=== PATIENT | male | born 1940 | race Caucasian/White ===

== ENCOUNTER 2017-05-08 01:53 | Observation (INO) | payer MEDICARE, OTHER ==
[~2017-05-08] VITALS: Ht 170.2 cm; Wt 75.7 kg
[2017-05-08] VITALS (11 sets, daily range): BP systolic 123–159; BP diastolic 77–89; PULSE 50–60; RESP 17–20; Ht 170.2 cm; Wt 75.7 kg
[2017-05-08] MEDS ORDERED: ONDANSETRON 4 MG INJ IV STA (02:34)
[2017-05-08] MEDS ORDERED: SOD CHLORIDE 0.9% 1,000 ML IV STA (02:34)
[2017-05-08 02:45] LABS: BASOPHILS % 0.8 % (0.0-2.0); EOSINOPHILS # 0.1 10^3/ul (0.0-0.5); EOSINOPHILS % 2.8 % (0.0-7.0); HEMATOCRIT 37.1 % (42.0-52.0); HEMOGLOBIN 13.2 g/dl (14.0-18.0); LYMPHOCYTES # 1.6 10^3/ul (0.8-2.9); LYMPHOCYTES % 32.6 % (15.0-51.0); MEAN CORPUSCULAR HEMOGLOBIN 31.8 pg (29.0-33.0); MEAN CORPUSCULAR HGB CONC 35.6 g/dl (32.0-37.0); MEAN CORPUSCULAR VOLUME 89.4 fl (82.0-101.0); MEAN PLATELET VOLUME 8.6 fl (7.4-10.4); MONOCYTE # 0.5 10^3/ul (0.3-0.9); MONOCYTES % 10.7 % (0.0-11.0); NEUTROPHIL # 2.6 10^3/ul (1.6-7.5); NEUTROPHILS % 52.7 % (39.0-77.0); PLATELET COUNT 240 10^3/UL (140-415); RED BLOOD COUNT 4.15 10^6/ul (4.70-6.10); RED CELL DISTRIBUTION WIDTH 12.1 % (11.5-14.5); WHITE BLOOD COUNT 4.9 10^3/ul (4.8-10.8)
--- NOTE | 2017-05-08 02:57 | RADRPT ---
PROCEDURE: XR Chest. CLINICAL INDICATION: Pain. TECHNIQUE: Single frontal chest x-ray. COMPARISON: None. FINDINGS: Heart is enlarged.. There is no congestive heart failure.. There is hypoventilation with mild bibas ilar atelectasis.. There is no pleural effusion. There is no pneumothorax. The osseous structures are unremarkable. IMPRESSION: Cardiomegaly. Hypoventilation with mild bibasilar atelectasis. RPTAT: HMVK .Yinka Gonzalez MD, Date Time Electronically viewed and signed by .Yinka Gonzalez MD, on 05/08/2017 02:56 .K/
[2017-05-08 03:02] LABS: ALANINE AMINOTRANSFERASE 42 IU/L (13-69); ALBUMIN 4.8 g/dl (3.3-4.9); ALBUMIN/GLOBULIN RATIO 1.37; ALKALINE PHOSPHATASE 90 IU/L (42-121); ANION GAP 20 (8-16); ASPARTATE AMINO TRANSFERASE 37 IU/L (15-46); BILIRUBIN,INDIRECT 0.7 mg/dl (0-1.1); BILIRUBIN,TOTAL 0.7 mg/dl (0.2-1.3); BLOOD UREA NITROGEN 12 mg/dl (7-20); CALCIUM 9.5 mg/dl (8.4-10.2); CARBON DIOXIDE 26 mmol/L (21-31); CHLORIDE 92 mmol/L (97-110); CREATININE 0.82 mg/dl (0.61-1.24); GLUCOSE 121 mg/dl (70-220); POTASSIUM 3.9 mmol/L (3.5-5.1); SODIUM 134 mmol/L (135-144); TOTAL PROTEIN 8.3 g/dl (6.1-8.1)
[2017-05-08 03:15] LABS: TROPONIN-I < 0.012 ng/ml (0.00-0.12)
--- NOTE | 2017-05-08 03:32 | RADRPT ---
PROCEDURE: CT Brain without contrast. CLINICAL INDICATION: Syncope TECHNIQUE: Axial images from the skull base through the vertex without IV contrast. Multiplanar r eformatted images were made. Images were reviewed on a PACS workstation. The CTDIvol is 43.86 mGy and the DLP is 810.25 mGycm. One or more of the following dose reduction techniques were used: auto mated exposure control, adjustment of the mA and/or kV according to patient size, or use of iterativ e reconstruction technique. COMPARISON: None. FINDINGS: The ventricles and cisterns are normal for age. Minimal volume loss for age. 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 There is no evidence for territoria l infarction or intracranial hemorrhage. No mass or midline shift is seen. No extra-axial fluid co llection is seen. prominent mucoperiosteal thickening and slight fluid is seen in the left maxilla ry sinus. Minimal fluid or mucoperiosteal thickening of the right ethmoids. Prior bilateral catarac t surgery. Small probable contusion of the left forehead. IMPRESSION: Small probable contusion of the left forehead. No definite acute intracranial abnormality. RPTAT: HLBE Physician Jennifer Date Time Electronically viewed and signed by Physician Jennifer on 05/08/2017 03:32 YONY/
[2017-05-08] MEDS ORDERED: AMOX1TAB10 PO (03:42)
[2017-05-08] MEDS ORDERED: AMO500 PO (03:42)
[2017-05-08] MEDS ORDERED: CLOP75TA4 PO (03:42)
[2017-05-08] MEDS ORDERED: CARV25TA79 PO (03:42)
[2017-05-08] MEDS ORDERED: PANT40TA4 PO (03:42)
--- NOTE | 2017-05-08 03:46 | ERA ---
ER Documentation Chief Complaint Date/Time DATE: 05/08/17 TIME: 03:44 Chief Complaint BIBA FROM HOME SYNCOPAL EPISODE WHILE TRYING TO HAVE A BM HPI 77-year-old man brought in by EMS from home for syncopal episode while having a bowel movement tonight. He had no seizure activity but did strike the left brow when he fell forward. He is been using amoxicillin 8 days for recent diagnosis of sinusitis. He denied chest pain or palpitations, no recent fevers or chills, no shortness of breath, no vomiting or diarrhea. He has had no blood per rectum or melena. ROS All systems reviewed and are negative except as per history of present illness. Medications Home Meds Reported Medications Carvedilol* (Carvedilol*) 25 Mg Tablet, 25 MG PO DAILY, #60 TAB 05/08/17 Clopidogrel Bisulfate* (Clopidogrel Bisulfate*) 75 Mg Tablet, 75 MG PO DAILY, # 30 TAB 05/08/17 Amoxicillin* (Amoxicillin*) 500 Mg Cap, 500 MG PO Q8, #30 CAP 05/08/17 Amoxicillin/Potassium Clav (Amox-Clav 875-125 mg Tablet) 875-125 mg Tab, 1 TAB PO TID, #20 TAB 05/08/17 Pantoprazole* (Pantoprazole*) 40 Mg Tablet.dr, 40 MG PO DAILY, TAB 05/08/17 Allergies Allergies: Coded Allergies: No Known Allergy (Unverified , 05/08/17) PMhx/Soc Hypertension, gastritis, recent sinusitis History of Surgery: Yes (prostate sx) Anesthesia Reaction: No Hx Neurological Disorder: No Hx Respiratory Disorders: No Hx Cardiac Disorders: Yes (htn) Hx Psychiatric Problems: No Hx Miscellaneous Medical Probl: Yes (gastritis) Hx Alcohol Use: No Hx Substance Use: No Hx Tobacco Use: No Smoking Status: Never smoker FmHx Family History: No diabetes Physical Exam Vitals Vital Signs Date Time Temp Pulse Resp B/P Pulse Ox O2 Delivery O2 Flow Rate FiO2 05/08/17 02:21 48 17 147/83 100 Room Air 05/08/17 02:05 97.7 43 20 162/88 98 Physical Exam GENERAL: Well-developed, well-nourished, appears dehydrated, afebrile HEENT: Dry mucous membranes, pink conjunctiva, no cervical spine tenderness or step-off deformities, positive abrasion to the left brow, no submandibular induration, and no pharyngeal erythema NEURO: Alert and oriented 3, cranial nerves II through XII intact bilaterally, pupils equal round reactive to light, no focal deficits or facial asymmetry, sensation intact distally Strength 5/5 in upper and lower extremities bilaterally CARDIAC: Regular rate and rhythm, no murmurs rubs or gallops LUNGS: Clear bilaterally no wheezing crackles or stridor ABDOMEN: Soft nontender, no guarding, no rigidity, no rebound, no psoas sign no obturator sign. Normoactive bowel sounds SKIN: Warm and dry to touch, positive skin abrasion and contusion to the left brow no target lesions, and without ulcers EXTREMITIES: No clubbing cyanosis or edema, calves are bilaterally symmetrical, no Homans sign, no popliteal cord sign. Distal pulses equal and bilateral PSYCH: Normal affect without agitation or irritability Result Diagram: 05/08/1721405/08/17214 Results 24 hrs Laboratory Tests Test 05/08/17 02:15 White Blood Count 4.910^3/ul Red Blood Count 4.1510^6/ul Hemoglobin 13.2g/dl Hematocrit 37.1% Mean Corpuscular Volume 89.4fl Mean Corpuscular Hemoglobin 31.8pg Mean Corpuscular Hemoglobin Concent 35.6g/dl Red Cell Distribution Width 12.1% Platelet Count 19240^3/UL Mean Platelet Volume 8.6fl Neutrophils % 52.7% Lymphocytes % 32.6% Monocytes % 10.7% Eosinophils % 2.8% Basophils % 0.8% Nucleated Red Blood Cells % 0.0/100WBC Neutrophils # 2.610^3/ul Lymphocytes # 1.610^3/ul Monocytes # 0.510^3/ul Eosinophils # 0.110^3/ul Basophils # 0.010^3/ul Nucleated Red Blood Cells # 0.010^3/ul Sodium Level 134mmol/L Potassium Level 3.9mmol/L Chloride Level 92mmol/L Carbon Dioxide Level 26mmol/L Anion Gap 20 Blood Urea Nitrogen 12mg/dl Creatinine 0.82mg/dl Glucose Level 121mg/dl Calcium Level 9.5mg/dl Total Bilirubin 0.7mg/dl Direct Bilirubin 0.00mg/dl Indirect Bilirubin 0.7mg/dl Aspartate Amino Transf (AST/SGOT) 37IU/L Alanine Aminotransferase (ALT/SGPT) 42IU/L Alkaline Phosphatase 90IU/L Troponin I < 0.012ng/ml Total Protein 8.3g/dl Albumin 4.8g/dl Globulin 3.50g/dl Albumin/Globulin Ratio 1.37 Lipase 152U/L Current Medications Medications (Trade) Dose Ordered Sig/Edith Route PRN Reason Start Time Stop Time Status Last Admin Dose Admin Sodium Chloride (NS) 1,000 ml @ 1,000 mls/hr Q1H STAT IV 05/08/17 02:34 05/08/17 03:33 DC 05/08/17 02:48 Ondansetron HCl (Zofran Inj) 4 mg ONCE STAT IV 05/08/17 02:34 05/08/17 02:36 DC 05/08/17 02:48 Diphtheria/ Tetanus/Acell Pertussis (Adacel) 0.5 ml ONCE ONCE IM* 05/08/17 04:00 05/08/17 04:01 Procedures/MDM IV line was established patient was placed on patient monitor rhythm strip revealed a sinus bradycardia at about 50 bpm. Patient was afebrile. Left brow was copiously irrigated and triple antibiotic ointment was applied, no sutures required. EKG performed, read by me revealed a sinus bradycardia 50 bpm, left axis deviation, narrow QRS complex, no concerning ST elevations or depressions noted. One view chest x-ray performed, read by me there are atelectatic changes bilaterally, no acute infiltrates, no pneumothorax. CT scan of the brain was performed that was negative for acute bleed mass or shift. I administered 1 L normal saline intravenously for dehydration and Zofran 4 mg IV for dizziness, patient also received tetanus toxoid 0.5 mL intramuscular injection. CBC was unremarkable, electrolytes normal, liver function tests normal, troponin was negative. Urine analysis is also been ordered results are pending I will follow-up. Patient is currently using antibiotics 8 days for sinusitis, beta-lactam antibiotics can cause cardiac dysrhythmias although unlikely in this scenario patient will be admitted to telemetry setting for continued medical management and possible cardiology consultation. Departure Diagnosis: Primary Impression: Syncope Qualified Code: R55 - Syncope, unspecified syncope type Additional Impressions: Symptomatic bradycardia Dehydration Abrasion of brow Qualified Code: S00.81XA - Abrasion of brow, initial encounter Condition: YANDY Moreno MD May 08, 2017 03:46
[2017-05-08] MEDS ORDERED: DIPHTH/TET/ACEL PERTUSS (ADULT) 0.5 ML VIAL IM* ONE (04:00)
[2017-05-08] MEDS ORDERED: DOCUSATE SODIUM 100 MG CAP PO PRN (04:30)
[2017-05-08] MEDS ORDERED: ONDANSETRON 4 MG INJ IV PRN (04:30)
[2017-05-08] MEDS ORDERED: BISACODYL (EC) 5 MG TAB PO PRN (04:30)
[2017-05-08] MEDS ORDERED: NACL 0.9% 3 ML SYG IV SCH (04:30)
[2017-05-08] MEDS: PANTOPRAZOLE 40 MG INJ IV SCH (06:24)
--- NOTE | 2017-05-08 06:27 | HP ---
Date/Time of Note Date/Time of Note DATE: 05/08/17 TIME: 06:10 Assessment/Plan VTE Prophylaxis VTE Prophylaxis Intervention: SCD's Assessment/Plan Chief Complaint/Hosp Course This is a 77 year male being admitted to the telemetry floor for: #1 syncopal episode: Neurocardiogenic versus cardiac versus situational syncope. Patient appear to have syncope after however and having a bowel movement. He is also noted to be sinus bradycardic as well. At the current time will check carotid Dopplers, 2D echocardiogram. Brain CT did not show any acute abnormalities. Will check orthostatic vital signs. Will hold beta- estrella at this time. Consult cardiology, consider neurology if indicated. #2 hypertension: Patient apparently is on carvedilol only for his blood pressure he denies any other previous cardiac history. Will hold the beta- estrella for now and likely if there is no other indication we will discontinue the carvedilol and start him an alternative medication that does not have beta- blockade/AV marian effects. #3 antiplatelet medication: Patient states that he is on Plavix for his blood pressure. He denies any previous history of any heart attack or stroke/TIA or any coronary artery disease. At this time I do not feel like this patient needs Plavix. Will hold for now and defer to cardiology. #4 DVT and GI prophylaxis: SCDs, Protonix Further treatment strategy will be implemented as per the clinical course Problems: HPI/ROS Admit Date/Time Admit Date/Time May 08, 2017 at 03:57 Hx of Present Illness cc: fall at home with loc. 77-year-old man brought in by EMS from home for syncopal episode while having a bowel movement tonight. He states he was sitting on the toilet and felt warm after his bowel movement and thinks he fell over. He did have LOC for approx 1 minute as per his . He had no seizure activity but did strike the left brow when he fell forward. He is been using amoxicillin 8 days for recent diagnosis of sinusitis. He denied chest pain or palpitations, no recent fevers or chills, no shortness of breath, no vomiting or diarrhea. He has had no blood per rectum or melena. allergies: nkda meds: see LILIAM RECIO Const: As per HPI Eyes : No pain discharge or redness or change in visual acuity ENT: No pain, sore throat, congestion, congestion, dysphagia or discharge Respiratory: No shortness of breath, cough, sputum, wheezing, or pleuritic pain Cardiovascular: No chest pain, palpitation, PND, or edema GI : no change in appetite, abdominal pain, nausea, vomiting, diarrhea, constipation, or change in the color his stool Genitourinary: No dysuria, hematuria, flank pain , discharge or CVA tenderness Musculoskeletal: No joint pain, back pain, neck pain, restricted range of motion in neck or joints Skin: As per HPI Neuro: As per HPI Endocrine: No polyuria, polydipsia, temperature intolerance Psych: No hallucination, depression, anxiety or suicidal ideation PMH/Family/Social Past Medical History Hypertension, prostate cancer Past Surgical History Partial prostate surgery Family History Significant Family History: no pertinent family hx Social History Alcohol Use: sober (Previous alcohol drinker) Smoking Status: Never smoker Drug Use: none Exam/Review of Systems Vital Signs Vitals Vital Signs Date Time Temp Pulse Resp B/P Pulse Ox O2 Delivery O2 Flow Rate FiO2 05/08/17 05:12 53 05/08/17 04:17 16 159/99 100 Room Air 05/08/17 02:05 97.7 Exam Exam General: Patient is well-developed well-nourished The patient is alert oriented -3 lying comfortably in bed. HEENT: Left forehead abrasion currently covered in dressing, tenderness to palpation at the area of the abrasion, no facial sinus pain to palpation Neck: Supple with full range of motion. No rigidity or meningismus Chest: Nontender Lungs: Clear to auscultation bilaterally no crackles rales or wheezing Heart: Sinus bradycardia no overt murmurs appreciated Abdomen: Soft , nontender, nondistended , bowel sounds are present. No guarding no rebound tenderness , No masses or organomegaly. No costovertebral temporal angle mass Extremities: Normal to inspection, no edema no cyanosis Neurologic: Normal mental status, speech normal, cranial nerves II through XII are intact, motor and sensory are intact, no focal weakness Additional Comments ROCEDURE: CT Brain without contrast. CLINICAL INDICATION: Syncope TECHNIQUE: Axial images from the skull base through the vertex without IV contrast. Multiplanar reformatted images were made. Images were reviewed on a PACS workstation. The CTDIvol is 43.86 mGy and the DLP is 810.25 mGycm. One or more of the following dose reduction techniques were used: automated exposure control, adjustment of the mA and/or kV according to patient size, or use of iterative reconstruction technique. COMPARISON: None. FINDINGS: The ventricles and cisterns are normal for age. Minimal volume loss for age. Tiny probable old lacunar infarct of the anterior limb of the right internal capsule. There is no evidence for territorial infarction or intracranial hemorrhage. No mass or midline shift is seen. No extra-axial fluid collection is seen. prominent mucoperiosteal thickening and slight fluid is seen in the left maxillary sinus. Minimal fluid or mucoperiosteal thickening of the right ethmoids. Prior bilateral cataract surgery. Small probable contusion of the left forehead. IMPRESSION: Small probable contusion of the left forehead. No definite acute intracranial abnormality. RPTAT: [facility] Physician Jennifer Date Time Electronically viewed and signed by Physician Jennifer on 05/08/2017 03 :32 PROCEDURE: XR Chest. CLINICAL INDICATION: Pain. TECHNIQUE: Single frontal chest x-ray. COMPARISON: None. FINDINGS: Heart is enlarged.. There is no congestive heart failure.. There is hypoventilation with mild bibasilar atelectasis.. There is no pleural effusion. There is no pneumothorax. The osseous structures are unremarkable. IMPRESSION: Cardiomegaly. Hypoventilation with mild bibasilar atelectasis. RPTAT: HMVK .Yinka Gonzalez MD, MD Date Time Electronically viewed and signed by .Yinka Goznalez MD, on 05/08/2017 02:56 EKG sinus bradycardia 50 bpm, left axis deviation, narrow QRS complex, no concerning ST elevations or depressions noted. As per ED physician augmentation Labs Result Diagram: 05/08/1721405/08/17 021 Medications Medications Current Medications Clopidogrel Bisulfate (plaVIX) 75 mg DAILY PO ; Start 05/08/17 at 09:00 Ondansetron HCl (Zofran Inj) 4 mg Q6H PRN IV NAUSEA AND/OR VOMITING; Start at 04:30 Docusate Sodium (Colace) 100 mg Q12H PRN PO CONSTIPATION; Start 05/08/17 at 04: 30 Bisacodyl (Dulcolax) 5 mg DAILY PRN PO CONSTIPATION; Start 05/08/17 at 04:30 Pantoprazole (Protonix Iv) 40 mg DAILY@06 IV ; Start 05/08/17 at 06:00 SHIMA CRANE May 08, 2017 06:25
[2017-05-08 06:39] LABS: BASOPHILS % 0.6 % (0.0-2.0); EOSINOPHILS % 0.4 % (0.0-7.0); HEMATOCRIT 37.9 % (42.0-52.0); HEMOGLOBIN 13.5 g/dl (14.0-18.0); LYMPHOCYTES # 1.3 10^3/ul (0.8-2.9); LYMPHOCYTES % 18.3 % (15.0-51.0); MEAN CORPUSCULAR HEMOGLOBIN 31.8 pg (29.0-33.0); MEAN CORPUSCULAR HGB CONC 35.6 g/dl (32.0-37.0); MEAN CORPUSCULAR VOLUME 89.2 fl (82.0-101.0); MEAN PLATELET VOLUME 8.8 fl (7.4-10.4); MONOCYTE # 0.3 10^3/ul (0.3-0.9); MONOCYTES % 4.3 % (0.0-11.0); NEUTROPHIL # 5.4 10^3/ul (1.6-7.5); NEUTROPHILS % 75.7 % (39.0-77.0); PLATELET COUNT 249 10^3/UL (140-415); RED BLOOD COUNT 4.25 10^6/ul (4.70-6.10); WHITE BLOOD COUNT 7.2 10^3/ul (4.8-10.8)
[2017-05-08 06:53] LABS: CREATINE KINASE 57 IU/L (23-200)
[2017-05-08 07:07] LABS: CK-MB 0.69 ng/ml (0.0-2.4); TROPONIN-I < 0.012 ng/ml (0.00-0.12)
[2017-05-08 07:23] LABS: ALBUMIN 4.5 g/dl (3.3-4.9); ALBUMIN/GLOBULIN RATIO 1.36; BILIRUBIN,INDIRECT 0.7 mg/dl (0-1.1); BILIRUBIN,TOTAL 0.7 mg/dl (0.2-1.3); CALCIUM 9.5 mg/dl (8.4-10.2); CREATININE 0.64 mg/dl (0.61-1.24); MAGNESIUM 1.7 mg/dl (1.7-2.5); POTASSIUM 3.8 mmol/L (3.5-5.1); TOTAL PROTEIN 7.8 g/dl (6.1-8.1)
[2017-05-08 07:55] LABS: THYROID STIMULATING HORMONE 0.718 MIU/L (0.465-4.680)
[2017-05-08] MEDS: CLOPIDOGREL 75 MG TAB PO SCH (08:42)
[2017-05-08] MEDS ORDERED: PANTOPRAZOLE (EC) 40 MG TAB PO SCH (09:00)
--- NOTE | 2017-05-08 10:02 | RADRPT ---
PROCEDURE: US Carotids. CLINICAL INDICATION: bruit , syncope TECHNIQUE: Multiple sonographic of the carotid bifurcation region and vertebral arteries were obta ined utilizing melton scale, duplex and color-flow imaging. The images were reviewed on a PACS worksta tion. COMPARISON: No prior studies are available for comparison. FINDINGS: Evaluation of the right carotid bifurcation region reveals mild calcific atherosclerotic disease. Evaluation of the left carotid bifurcation region reveals mild calcific atherosclerotic disease. There is antegrade flow within the vertebral arteries bilaterally. RIGHT CAROTID MEASUREMENTS: Common Carotid Bmjgtr21.2 (cm/sec) Internal Carotid Artery - whudaxlk55.3 (cm/sec) Internal Carotid Artery - mid60.8 (cm/sec) Internal Carotid Artery - vjqkoh68.5 (cm/sec) Internal Carotid/Common Carotid1.38 LEFT CAROTID MEASUREMENTS: Common Carotid Alhwdw48.7 (cm/sec) Internal Carotid Artery - wqwqdrxi55.3 (cm/sec) Internal Carotid Artery - mid55.1 (cm/sec) Internal Carotid Artery - rycnyq35 (cm/sec) Internal Carotid/Common Carotid1.1 RPTAT: AA IMPRESSION: No evidence for hemodynamically significant stenosis in the bilateral internal carotid arteries - va lidated velocity measurements with angiographic measurements, velocity criteria are extrapolated fro m diameter data as defined by the Society of Radiologists in Ultrasound Consensus Conference Radiolo gy 2003; 229;340-346. This study does indirectly reference the measurement of the distal ICA diamet er as the denominator for stenosis measurement. Normal antegrade flow in the vertebral arteries bilaterally. .Tian Posey MD, MD Date Time Electronically viewed and signed by .Tian Posey MD, on 05/08/2017 10:02 .S/
[2017-05-08] MEDS ORDERED: VALS1TAB80 PO (10:39)
[2017-05-08] MEDS ORDERED: morphine 2 MG INJ IV PRN (11:30)
[2017-05-08 11:46] LABS: CREATINE KINASE 65 IU/L (23-200)
[2017-05-08 12:01] LABS: CK-MB 0.63 ng/ml (0.0-2.4); TROPONIN-I < 0.012 ng/ml (0.00-0.12)
--- NOTE | 2017-05-08 19:03 | CONS ---
Date/Time of Note Date/Time of Note DATE: 05/08/17 TIME: 18:58 Assessment/Plan Assessment/Plan Additional Assessment/Plan Syncope Hypertension Trauma -Patient with syncopal episode when having severe abdominal pain while on the toilet. Otherwise denies any palpitations, dizziness in the past for syncope in the past. Episode likely secondary to vasovagal. Carotid ultrasound unremarkable, unfortunately there is no ECG in the chart review, I will order one. Echocardiogram to be reviewed. Continue telemetry monitoring. Consultation Date/Type/Reason Admit Date/Time May 08, 2017 at 03:57 Type of Consultation: cv Reason for Consultation Syncope Hx of Present Illness This is a 77-year-old male with past medical history of hypertension who presents with syncopal episode. Patient states she was having severe abdominal cramping yesterday and he went to the bathroom. As he was sitting on the toilet , pain became very severe and he fell over and thinks he lost consciousness. There is no palpitations, chest pain, shortness of breath prior to this episode. When he fell forward, he did have head trauma. He was brought to the emergency room for further evaluation and care. He denies any exertional chest pain or shortness of breath. He is active with no exertional symptoms as mentioned. Denies any history of syncope or near syncope. 12 point review of systems was performed with all pertinent positives and negatives mentioned above and all else is negative Past Medical History Medical History: hypertension Family History Significant Family History: no pertinent family hx Social History Alcohol Use: sober (Previous alcohol drinker) Smoking Status: Never smoker Drug Use: none Exam/Review of Systems Vital Signs Vitals Vital Signs Date Time Temp Pulse Resp B/P Pulse Ox O2 Delivery O2 Flow Rate FiO2 05/08/17 16:49 144/78 134/89 123/84 05/08/17 16:30 50 05/08/17 15:41 97.6 17 96 05/08/17 04:17 Room Air Intake and Output 05/07/17 05/07/17 05/08/17 15:00 23:00 07:00 Output Total 300 ml Balance -300 ml Exam No apparent distress Constitutional: alert, oriented Head: lacerations Respiratory: other (Coarse breath sounds bilaterally, no wheezing) Cardiovascular: other (S1-S2 heard), regular rate and rhythm Gastrointestinal: bowel sounds, non-tender, soft Extremities: other (No edema) Results Result Diagram: 05/08/17 0546 05/08/17 0546 Results 24 hrs Laboratory Tests Test 05/08/17 02:15 05/08/17 05:46 05/08/17 11:03 White Blood Count 4.9 7.2 # Red Blood Count 4.15 L 4.25 L Hemoglobin 13.2 L 13.5 L Hematocrit 37.1 L 37.9 L Mean Corpuscular Volume 89.4 89.2 Mean Corpuscular Hemoglobin 31.8 31.8 Mean Corpuscular Hemoglobin Concent 35.6 35.6 Red Cell Distribution Width 12.1 12.0 Platelet Count 240 249 Mean Platelet Volume 8.6 8.8 Neutrophils % 52.7 75.7 Lymphocytes % 32.6 18.3 Monocytes % 10.7 4.3 Eosinophils % 2.8 0.4 Basophils % 0.8 0.6 Nucleated Red Blood Cells % 0.0 0.0 Neutrophils # 2.6 5.4 Lymphocytes # 1.6 1.3 Monocytes # 0.5 0.3 Eosinophils # 0.1 0.0 Basophils # 0.0 0.0 Nucleated Red Blood Cells # 0.0 0.0 Sodium Level 134 L 135 Potassium Level 3.9 3.8 Chloride Level 92 L 91 L Carbon Dioxide Level 26 25 Anion Gap 20 H 23 H Blood Urea Nitrogen 12 10 Creatinine 0.82 0.64 Glucose Level 121 107 Calcium Level 9.5 9.5 Total Bilirubin 0.7 0.7 Direct Bilirubin 0.00 0.00 Indirect Bilirubin 0.7 0.7 Aspartate Amino Transf (AST/SGOT) 37 34 Alanine Aminotransferase (ALT/SGPT) 42 38 Alkaline Phosphatase 90 94 Troponin I < 0.012 < 0.012 < 0.012 Total Protein 8.3 H 7.8 Albumin 4.8 4.5 Globulin 3.50 H 3.30 H Albumin/Globulin Ratio 1.37 1.36 Lipase 152 Hemoglobin A1c 5.0 Magnesium Level 1.7 Creatine Kinase 57 65 Creatine Kinase Index 1.2 1.0 Creatinine Kinase MB (Mass) 0.69 0.63 Thyroid Stimulating Hormone (TSH) 0.718 Medications Medications Current Medications Clopidogrel Bisulfate (plaVIX) 75 mg DAILY PO Last administered on 05/08/17t 08 :42; Admin Dose 75 MG; Start 05/08/17 at 09:00 Ondansetron HCl (Zofran Inj) 4 mg Q6H PRN IV NAUSEA AND/OR VOMITING; Start at 04:30 Docusate Sodium (Colace) 100 mg Q12H PRN PO CONSTIPATION; Start 05/08/17 at 04: 30 Bisacodyl (Dulcolax) 5 mg DAILY PRN PO CONSTIPATION; Start 05/08/17 at 04:30 Pantoprazole (Protonix Iv) 40 mg DAILY@06 IV Last administered on 05/08/17 06: 24; Admin Dose 40 MG; Start 05/08/17 at 06:00 Morphine Sulfate (morphine) 2 mg Q4H PRN IV PAIN Last administered on 11:46; Admin Dose 2 MG; Start 05/08/17 at 11:30 Yinka Antonio DO May 08, 2017 19:03
--- NOTE | 2017-05-08 22:03 | RADRPT ---
Echocardiogram Report Patient Name: ZIGGY GARCIA Gender: Male Date: 1940 Study Date: 08-May-2017 Staff Technologist: Yonatan Long [facility] Location: [id number] Ref. Physician: SHIMA CRANE Quality: Good Procedures: Transthoracic echocardiogram with complete 2D, M-Mode, and doppler examination. Indications: Syncope. 2D/M Mode Doppler Measurement Value Normal Ranges Measurement Value Normal Ranges LVIDd 2D 4.1 3.5 - 5.6 cm AV Peak Yahir 1.4 m/sec LVIDs 2D 1.7 2.1 - 4.1 cm AV Peak PG 7.5 mmHg LVPWd 2D 1.0 0.6 - 1.1 cm LVOT Peak Yahir 1.0 m/sec IVSd 2D 1.2 0.6 - 1.1 cm LVOT Peak PG 3.8 mmHg AoR Diam 2D 3.0 2.0 - 3.7 cm MV E Peak Yahir 0.6 m/sec EDV 2D 72.6 cm3 MV A Peak Yahir 0.8 m/sec ESV 2D 4.9 cm3 MV E/A 0.7 LA Dimen 2D 2.8 2.3 - 4.0 cm MV Decel Time 259 msec MV Decel [place] 2 MV E/A 0.7 TR Peak Yahir 2.6 m/sec TR Peak PG 28.0 mmHg RVSP 31.0 mmHg Findings Left Ventricle: Normal left ventricular systolic function. Normal left ventricular cavity size. Mild concentric left ventricular hypertrophy. Ejection fraction is visually estimated at 60 %. Tissue Doppler/Mitral Doppler indices are consistent with impaired relaxation (Stage I diastolic dysfunction). Right Ventricle: Normal right ventricular size. Normal right ventricular systolic function. Left Atrium: The left atrium is normal in size. Right Atrium: The right atrium is normal in size. Mitral Valve: Normal appearance and function of the mitral valve with trace physiologic regurgitation. Aortic Valve: No hemodynamically significant aortic stenosis by doppler. Aortic cusps appear mildly calcified. Trace aortic valve regurgitation. Tricuspid Valve: Normal appearance of the tricuspid valve. Estimated peak PA systolic pressure 31 mmHg. There is trace tricuspid regurgitation. Pulmonic Valve: Normal pulmonic valve appearance. Pericardium: Normal pericardium with no significant pericardial effusion. Aorta: Normal aortic root. IVC: Normal size and normal respiratory collapse consistent with normal right atrial pressure. Conclusions Normal left ventricular systolic function. Normal left ventricular cavity size. Mild concentric left ventricular hypertrophy. Ejection fraction is visually estimated at 60 %. Tissue Doppler/Mitral Doppler indices are consistent with impaired relaxation (Stage I diastolic dysfunction). Normal right ventricular size. Normal right ventricular systolic function. The left atrium is normal in size. The right atrium is normal in size. No significant valvular stenosis or regurgitation seen. Normal pericardium with no significant pericardial effusion. Electronically Signed By: Yinka Antonio 08-May-2017 22:02:52 -0700 Patient Name: ZIGGY GARCIA Study Date: 08-May-2017 [id number]
[2017-05-09] VITALS (9 sets, daily range): BP systolic 118–155; BP diastolic 54–85; PULSE 46–54; RESP 18–20
[2017-05-09] MEDS ORDERED: ACETAMINOPHEN 325 MG TAB PO PRN
[2017-05-09] MEDS: PANTOPRAZOLE 40 MG INJ IV SCH (05:40)
[2017-05-09 09:03] LABS: CALCIUM 9.1 mg/dl (8.4-10.2); CREATININE 0.69 mg/dl (0.61-1.24)
[2017-05-09] MEDS: CLOPIDOGREL 75 MG TAB PO SCH (09:40)
--- NOTE | 2017-05-09 10:07 | PDOCDIS ---
Discharge Instructions CONDITION Patient Condition: Stable HOME CARE INSTRUCTIONS: Diet Instructions: 2gm Na FOLLOW UP/APPOINTMENTS Follow-up Plan 1.Follow up with primary care physician in 1 week If you don't have one please let someone know, we can give you resources that may help you pick one. You may also call your insurance company to assign one to you. Review your medication list with your nurse before leaving and if you need new prescriptions please let your nurse know. I may have made changes to your home medications or given you new prescriptions, please let your primary doctor know as well. Stay compliant with your medications and report any side effects to your PCP or pharmacist. Return to the ER if you have any concerns and cannot reach your doctors or call your insurance company, they usually have a nurse that can help you. IVONNE EMERY NP May 09, 2017 10:07
[2017-05-09] MEDS ORDERED: VALS320T11 PO (10:13)
--- NOTE | 2017-05-09 10:24 | DS ---
Date/Time of Note Date/Time of Note DATE: 05/09/17 TIME: 10:21 Discharge Summary Admission/Discharge Info Admit Date/Time May 08, 2017 at 03:57 Discharge Date/Time Discharge Diagnosis Syncope, most likely vasovagal. Symptoms resolved. Essential hypertension Symptomatic bradycardia. Stable Patient Condition: Stable Consults ,Cardiology Procedures 05/08/2017. Ultrasound carotid. No evidence of hemodynamically significant stenosis. 05/08/2017. Chest x-ray. Cardiomegaly. 05/08/2017. CT brain without contrast.Small probable contusion of the left forehead. No definite acute intracranial abnormality. 05/08/2017. 2D echocardiogram. Normal left ventricular systolic function with ejection fraction 60% Hospital Course This is a 77-year-old male with a past medical history of essential hypertension, who presented to the emergency room after had episode of feeling dizzy and fell while he was sitting on the toilet. Patient also reported that he was experiencing abdominal pain. Patient also takes Plavix at home. He denied any chest pain, palpitation, shortness of breath, fever, chills, nausea or vomiting. When patient fell he also did hit his head. In the emergency room , a brain CT was negative for any acute intracranial abnormality except for a small probable contusion of the left forehead. Carotid duplex is negative. Chest x-ray without any acute cardiopulmonary process. Initial troponin negative. 12-lead EKG with sinus bradycardia at a rate of 50 bpm, there was no ST elevation or depression. Patient was given 1 L normal saline and Zofran 4 mg and was admitted for further evaluation. A cardiology consult was called. Serial troponin was monitored and was negative. 2D echocardiogram showed preserved ejection fraction. Patient had asymptomatic bradycardia mostly at the rate of 50s. Beta-blockers were discontinued per cardiology recommendation. Blood pressure was monitored closely and remained stable. Patient did not have any further episode of dizziness or syncope. He was able to tolerate ambulation and diet well. He did not have any headache or other neuro symptoms. He did require an inpatient neurology evaluation. Most likely, patient symptoms were secondary to vasovagal. At this time, as per cardiology recommendation, patient is medically stable for discharge with discontinuation of his antihypertensives including beta-estrella. The recommendation was to continue patient on Diovan upon discharge. Patient was instructed on his blood pressure medication regimen change upon discharge and verbalized discharge instructions. On day of discharge, patient vital signs, labs remained within acceptable range. Patient feels back to his baseline. Disposition: Patient will be discharged home with outpatient primary care follow -up. Patient was instructed to continue 2 g sodium diet. He was given prescription for Diovan. He was instructed to stop all other antihypertensives that he takes at home. Patient and family verbalized discharge instructions. Condition at time of discharge stable. Approximately 60 minutes was spent in coordinating the discharge of this patient. Case discussed with Dr. Fernando. Home Meds Active Scripts Valsartan* (Diovan*) 320 Mg Tablet, 320 MG PO DAILY, #30 TAB Prov:EMERYIVONNE V. [employer] PROGRAMMER 05/09/17 Reported Medications Clopidogrel Bisulfate* (Clopidogrel Bisulfate*) 75 Mg Tablet, 75 MG PO DAILY, # 30 TAB 05/08/17 Pantoprazole* (Pantoprazole*) 40 Mg Tablet.dr, 40 MG PO DAILY, TAB 05/08/17 Discontinued Reported Medications Amoxicillin* (Amoxicillin*) 500 Mg Cap, 500 MG PO Q8, #30 CAP 05/08/17 Amoxicillin/Potassium Clav (Amox-Clav 875-125 mg Tablet) 875-125 mg Tab, 1 TAB PO TID, #20 TAB 05/08/17 Follow-up Plan Patient Condition: Stable HOME CARE INSTRUCTIONS: Diet Instructions: 2gm Na FOLLOW UP/APPOINTMENTS Follow-up Plan 1.Follow up with primary care physician in 1 week If you don't have one please let someone know, we can give you resources that may help you pick one. You may also call your insurance company to assign one to you. Review your medication list with your nurse before leaving and if you need new prescriptions please let your nurse know. I may have made changes to your home medications or given you new prescriptions, please let your primary doctor know as well. Stay compliant with your medications and report any side effects to your PCP or pharmacist. Return to the ER if you have any concerns and cannot reach your doctors or call your insurance company, they usually have a nurse that can help you. Primary Care Provider Not On Staff Doctor Pending Labs Laboratory Tests Test 05/08/17 11:03 05/09/17 05:48 05/09/17 05:57 Creatine Kinase 65IU/L (23-200) Creatine Kinase Index 1.0 Creatinine Kinase MB (Mass) 0.63ng/ml (0.0-2.4) Troponin I < 0.012ng/ml (0.00-0.12) Magnesium Level 1.9mg/dl (1.7-2.5) Sodium Level 133mmol/L (135-144) Potassium Level 4.0mmol/L (3.5-5.1) Chloride Level 96mmol/L (97-110) Carbon Dioxide Level 23mmol/L (21-31) Anion Gap 18 (8-16) Blood Urea Nitrogen 13mg/dl (7-20) Creatinine 0.69mg/dl (0.61-1.24) Glucose Level 95mg/dl (70-220) Calcium Level 9.1mg/dl (8.4-10.2) IVONNE EMERY V. [employer] PROGRAMMER May 09, 2017 10:24
--- NOTE | 2017-05-09 10:45 | CONS ---
Date/Time of Note Date/Time of Note DATE: 05/09/17 TIME: 10:44 Assessment/Plan Assessment/Plan Additional Assessment/Plan Syncope Preserved ejection fraction Hypertension Trauma -Patient doing well, episode of syncope happened after severe abdominal pain and likely vasovagal. Echocardiogram with preserved ejection fraction. Given intermittent sinus bradycardia, and preserved ejection fraction, would DC Coreg. Continue ARB. Consultation Date/Type/Reason Admit Date/Time May 08, 2017 at 03:57 Initial Consult Date Type of Consultation: cv 24 HR Interval Summary Free Text/Dictation Patient denies dizziness, shortness of breath or chest pain Exam/Review of Systems Vital Signs Vitals Vital Signs Date Time Temp Pulse Resp B/P Pulse Ox O2 Delivery O2 Flow Rate FiO2 05/09/17 08:00 46 05/09/17 07:35 98.3 19 139/73 97 05/08/17 04:17 Room Air Intake and Output 05/08/17 05/08/17 05/09/17 15:00 23:00 07:00 Intake Total 800 ml 250 ml Balance 800 ml 250 ml Exam No apparent distress Constitutional: alert, oriented Head: normocephalic Respiratory: other (Coarse breath sounds bilaterally, no wheezing) Cardiovascular: other (S1-S2 heard), regular rate and rhythm Gastrointestinal: bowel sounds, non-tender, soft Extremities: other (No edema) Results Result Diagram: 05/08/17 0546 05/09/17 0557 Results 24 hrs Laboratory Tests Test 05/08/17 11:03 05/09/17 05:48 05/09/17 05:57 Creatine Kinase 65 Creatine Kinase Index 1.0 Creatinine Kinase MB (Mass) 0.63 Troponin I < 0.012 Magnesium Level 1.9 Sodium Level 133 L Potassium Level 4.0 Chloride Level 96 L Carbon Dioxide Level 23 Anion Gap 18 H Blood Urea Nitrogen 13 Creatinine 0.69 Glucose Level 95 Calcium Level 9.1 Medications Medications Current Medications Clopidogrel Bisulfate (plaVIX) 75 mg DAILY PO Last administered on 05/09/17 09 :40; Admin Dose 75 MG; Start 05/08/17 at 09:00 Ondansetron HCl (Zofran Inj) 4 mg Q6H PRN IV NAUSEA AND/OR VOMITING; Start at 04:30 Docusate Sodium (Colace) 100 mg Q12H PRN PO CONSTIPATION Last administered on 09:47; Admin Dose 100 MG; Start 05/08/17 at 04:30 Bisacodyl (Dulcolax) 5 mg DAILY PRN PO CONSTIPATION; Start 05/08/17 at 04:30 Pantoprazole (Protonix Iv) 40 mg DAILY@06 IV Last administered on 05/09/17 05: 40; Admin Dose 40 MG; Start 05/08/17 at 06:00 Morphine Sulfate (morphine) 2 mg Q4H PRN IV PAIN Last administered on 11:46; Admin Dose 2 MG; Start 05/08/17 at 11:30 Acetaminophen (Tylenol Tab) 650 mg Q6H PRN PO PAIN AND OR ELEVATED TEMP Last administered on 05/08/17 23:46; Admin Dose 650 MG; Start 05/09/17 at 00:00 Yinka Antonio DO May 09, 2017 10:45
--- NOTE | 2017-05-09 18:55 | RADRPT ---
Vent Rate: 48 bpm RR Interval: 0 msec NC Interval: 148 msec QRS Duration: 90 msec QT Interval: 496 msec QTC Interval: 443 msec P-R-T Mcdonough: 43 - -39 - 40 degrees Marked sinus bradycardia Left axis deviation Abnormal ECG Electronically Signed By: Roe Banks [id number]
== END 2017-05-09 14:51 | disposition home or self-care (01) ==
LOC: E/R 01:53 → MS4 03:57 → INTOOBSV 03:57
PROVIDERS: ADMIT Family Medicine; ATTEND Family Medicine
DX: R55 Syncope and collapse (principal); I10 Essential (primary) hypertension; R00.1 Bradycardia, unspecified; E86.0 Dehydration; S00.81XA Abrasion of other part of head, initial encounter; Z85.46 Personal history of malignant neoplasm of prostate; X58.XXXA Exposure to other specified factors, initial encounter; Y93.9 Activity, unspecified; Y99.9 Unspecified external cause status; Y92.9 Unspecified place or not applicable
CPT/HCPCS: 70450; 71010; 80048; 80053; 82550; 82553; 83036; 83690; 83735; 84443; 84484; 85025; 90715; 93005; 93306; 93880; C9113; G0378; J2270; J2405; J7030; 36415; 90471; 96374; 99217